=== PATIENT | male | born 1940 | race Caucasian/White ===

== ENCOUNTER 2016-06-18 09:52 | Day surgery (SDC) | payer OTHER ==
--- NOTE | ~2016-06-18 | OP ---
Record Of Operation [facility] [place] [address] [place]. [address] NAME: BRYN PADILLA : 36 STATUS : REG [facility]#: [id number] AGE: 76 ADM/REG DATE : 06/18/16 MR#: [id number] REPORT SERV DATE: 06/18/16 DICTATED BY: DEWAYNE LIND III DATE: 06/18/16 REPORT STATUS : Draft TRANSCRIBED BY: MODL DATE: 06/18/16 DATE OF PROCEDURE: 06/18/2016 PREOPERATIVE DIAGNOSIS: Left ureteral calculus. POSTOPERATIVE DIAGNOSIS: Passed stone. PROCEDURE: Cystoscopy, left retrograde pyelogram, left ureteroscopy. SURGEON: Dewayne Lind M.D. ANESTHESIA: General. SPECIMENS: None. DRAINS: None. BLOOD LOSS: None. INDICATION: Mr. Padilla is a 76-year-old white male, who I last saw in the office for nephrolithiasis. He had a recent CT scan showing a 6 mm left ureterovesical junction calculus. He is unsure whether he has passed the stone. Consent is obtained for stone manipulation. PROCEDURE IN DETAIL: After consent was obtained, the patient was identified. He was taken to the OR and put to sleep. He was positioned in the low lithotomy position and prepped and draped in the usual fashion. The 22-Amharic cystoscope was made ready and advanced along the course of the urethra and into the bladder. Bladder was inspected. There were no tumors, stones, or foreign bodies noted. The prostatic urethra was consistent with a prior TURP. The left ureteral orifice was edematous and erythematous. A cone-tipped ureteral catheter was inserted into the orifice and a retrograde study was obtained. There was no filling defect in the area of the ureterovesical junction. The ureter was of normal caliber with no filling defects. The pyelocaliceal collecting system was normal as well. Because of the recent CT scan findings, it was decided to perform ureteroscopy, therefore, a guidewire was passed up the left ureter and the rigid ureteroscope was used to inspect the ureter. There were no stones or stone fragments noted. The ureteroscope and the guidewire were removed. The cystoscope was used to drain the bladder. The patient was then awakened and taken to recovery in stable condition. PH/MODL Dewayne Lind III, M.D. Record Of Operation [facility] [place] [address] [place]. [address] NAME: BRYN PADILLA : 36 [place]US : [place] [facility] [place] [id number] AGE: 76 ADM/REG DATE : 06/18/16 MR#: [id number] REPORT SERV DATE: 06/18/16 DICTATED BY: DEWAYNE LIND III DATE: 06/18/16 REPORT STATUS : Draft TRANSCRIBED BY: FEMIL DATE: 06/18/16 / [id number] CC: Scooby Talavera III, D.O.
[~2016-06-18 09:52] MED LIST: ACET500CAP PO; AFRIN15 NAS; ALBUTEROL INH; ALBUTEROL0.63 MG/3 INH; AMB5 PO; ASAB PO; ATV1 PO; COLBENEMID PO; DSS PO; FLOMAX4 PO; GOODY'S EX-STR1 EAC1 PO; LIPITOR20 PO; LIPITOR80 MG PO; LOP25 PO; MCZ25 PO; NORCO1 TA1 PO; OCEAN NAS; P20 PO; PCET PO; PLAVIX PO; PROSCAR5 PO; RANITIDINE300 MG PO; SEPTRA DS1 TAB PO; SPIRIVA INH; SYMBICORT 160/41 INH INH; SYMBICORT 160/41 INH PO; SYMBICORT 80/4.1 INH INH; Spiriva Handihaler INH; TRAZ50 PO; TRAZODONE300 MG PO; ZANTAC 150; ZOCOR40 PO; ZOCOR80 MG PO
[2016-06-18 10:26] LABS: BASOPHILS 0.3 %; BASOPHILS ABSOLUTE 0.03 10/3/uL (0.0-0.16); EOSINOPHILS 2.3 %; HEMATOCRIT 47.3 % (40.0-51.0); HEMOGLOBIN 16.1 g/dL (13.6-17.8); IMMATURE GRANULOCYTES 0.2 %; IMMATURE GRANULOCYTES ABSOLUTE 0.02 10/3/uL (0.0-0.11); LYMPHOCYTES 35.1 %; LYMPHOCYTES ABSOLUTE 3.08 10/3/uL (0.67-4.30); MANUAL DIFF NO %; MEAN CORPUSCULAR HEMOGLOB 31.2 pg (26.0-34.0); MEAN CORPUSCULAR VOLUME 91.7 fL (80-100); MEAN PLATELET VOLUME 9.8 fL (9.2-13.0); MONOCYTES 10.8 %; MONOCYTES ABSOLUTE 0.95 10/3/uL (0.21-1.20); NEUTROPHILS 51.3 %; NEUTROPHILS ABSOLUTE 4.49 10/3/uL (2.02-8.40); PLATELET COUNT 206 10/3/uL (150-400); RBC DISTRIBUTION WIDTH 14.3 % (12.0-16.0); RED CELL COUNT 5.16 10/6/uL (4.7-6.1); WHITE BLOOD CELLS 8.8 10/3/uL (4.5-10.5)
[2016-06-18 12:22] LABS: CHLORIDE, SERUM 106 MMOL/L (96-112); CO2 (CARBON DIOXIDE) 28 MMOL/L (24-34); POTASSIUM, SERUM 4.3 MMOL/L (3.5-5.3); SODIUM, SERUM 144 MMOL/L (135-148)
[2016-06-18 12:23] LABS: BUN (BLOOD UREA NITROGEN) 13 MG/DL (6-23); CALCIUM, SERUM 9.4 MG/DL (8.5-10.4); CREATININE 1.34 MG/DL (0.70-1.30); GFR AFRICAN AMERICAN 58 ML/MIN (>=60); GFR NON AFRICAN AMERICAN 50 ML/MIN (>=60); GLUCOSE, SERUM 97 MG/DL (60-99)
== END 2016-06-18 16:39 | disposition home or self-care (01) ==
LOC: SDC 09:52
PROVIDERS: Urology
PROC: BT1FZZZ Fluoroscopy of Left Kidney, Ureter and Bladder (ICD-10-PCS; principal; 2016-06-18 11:45)
DX: N20.1 Calculus of ureter (principal)
CPT/HCPCS: 74420; 80048; 85025; 93005; C1758; C1769; J2405; J2710; J3010; Q9967